=== PATIENT | male | born 1945 | race Caucasian/White ===

== ENCOUNTER 2020-12-03 07:51 | Outpatient (CLI) | payer MEDICARE ==
[2020-12-03 14:23] LABS: Hemoglobin 11.9 g/dL (14.0-18.0); Mean Corpuscular HGB CONC 34.4 G/DL (32.0-36.0); Mean Corpuscular Hemoglobin 31.8 PG (27.0-33.0); Mean Corpuscular Volume 92.5 fl (80.0-100.0); Mean Platelet Volume 8.8 fl (7.4-10.4); Platelet Count 138 10x3/uL (130-400); RBC Distribution Width 14.1 % (11.5-14.5); Red Blood Cell (RBC) Count 3.74 10x6/uL (4.40-5.80); White Blood Cell (WBC) Count 6.1 10x3/uL (4.5-11.0)
[2020-12-03 15:29] LABS: Anion Gap 20 mmol/L (10-20); BUN (Urea Nitrogen) 20 mg/dL (8.4-25.7); Calc. Creatinine Clearance 0 mL/min (70-130); Calcium 9.5 mg/dL (7.8-10.44); Carbon Dioxide 21 mmol/L (23-31); Chloride 105 mmol/L (98-107); Glucose 94 mg/dL (83-110); Potassium 4.6 mmol/L (3.5-5.1); Sodium 141 mmol/L (136-145)
[2020-12-03 22:20] LABS: SARS-CoV-2 MS2 Positive; SARS-CoV-2 N Gene Negative; SARS-CoV-2 S Gene Negative; SARS-CoV-2 by NAA Not Detected (NotDetected); SARS-CoV-2 orf1ab Negative
== END 2020-12-03 07:52 | disposition home or self-care (01) ==
LOC: LABBT 07:51
PROVIDERS: ATTEND Internal Medicine Cardiovascular Disease
DX: Z01.812 Encounter for preprocedural laboratory examination (principal); Z20.822 Contact with and (suspected) exposure to COVID-19; Z95.1 Presence of aortocoronary bypass graft
CPT/HCPCS: 80048; 85027; U0003; 87635

== ENCOUNTER 2020-12-06 05:39 | Day surgery (SDC) | payer MEDICARE ==
[2020-12-04 10:02] VITALS: BMI 27.8
[2020-12-06] MEDS ORDERED: Lidocaine 1% PF 5 ML VIAL ONE (12:07)
[2020-12-06] MEDS ORDERED: PROPOFOL 200 MG/20 ML VIAL ONE (12:07)
--- NOTE | 2020-12-06 12:13 | ECHO ---
PROCEDURE: Transesophageal echo. The Anesthesiology Department provided with sedation for the patient. Please see their notes for details. After adequate sedation was achieved, the transesophageal probe was inserted into the mouth and into the esophagus and multiplanar views were then obtained. Left ventricle is normal in size with normal wall thickness. Systolic function is normal, estimated EF at 55% to 60% with no regional wall motion abnormalities. Left atrium is dilated. Left atrial appendage is ligated; however, there is flow in and out of a small appendage. Right ventricle is normal size with normal systolic function. Right atrium is normal size. Aortic valve is sclerotic, but opens well. No stenosis or regurgitation. Mitral valve is structurally normal. There is mild MR. No stenosis. Tricuspid valve is structurally normal. There is mild TR. No stenosis. Pulmonary valve is not well seen. 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 CONCLUSIONS: 1. Normal LV systolic function, EF of 55% to 60%. 2. Left atrial enlargement. 3. Mild MR. 4. Mild TR. 5. Left atrial appendage has flow in and out, not fully ligated. Recommend continued full anticoagulation for stroke prophylaxis in the setting of atrial fibrillation and an open left atrial appendage. Job ID: [id number]
== END 2020-12-06 10:21 | disposition home or self-care (01) ==
LOC: CCL 05:39
PROVIDERS: ATTEND Internal Medicine Cardiovascular Disease
PROC: B245ZZ4 Ultrasonography of Left Heart, Transesophageal (ICD-10-PCS; principal; 2020-12-06)
DX: I48.91 Unspecified atrial fibrillation (principal); I08.1 Rheumatic disorders of both mitral and tricuspid valves; Z95.1 Presence of aortocoronary bypass graft
CPT/HCPCS: 93312

== ENCOUNTER 2021-02-06 14:23 | Outpatient (CLI) | payer MEDICARE ==
[~2021-02-06 14:23] MED LIST: Magnevist 469MG/ML 20 ML VIAL ONE
== END 2021-02-06 14:24 | disposition home or self-care (01) ==
LOC: BICMRI 14:23
PROVIDERS: ATTEND Psychiatry & Neurology Neurology
DX: G31.84 Mild cognitive impairment of uncertain or unknown etiology (principal); I67.82 Cerebral ischemia
CPT/HCPCS: 70553; 82565

== ENCOUNTER 2021-11-18 18:54 | Inpatient (IN) | payer MEDICARE, OTHER ==
[2021-11-18 20:01] LABS: #Eosinphils 0.1 thou/uL (0.0-0.7); #Lymphocytes 1.3 thou/uL (1.20-3.40); #Neutrophils 6.7 thou/uL (1.40-6.50); %Basophils 0.1 % (0.0-1.0); %Eosinophils 0.8 % (0.0-10.0); %Lymphocytes 14.4 % (21.0-51.0); %Monocytes 11.1 % (0.0-10.0); %Neutrophils 73.6 % (42.0-75.0); Hemoglobin 12.2 g/dL (14.0-18.0); Mean Corpuscular HGB CONC 36.4 g/dL (32.0-36.0); Mean Corpuscular Hemoglobin 35.1 pg (27.0-31.0); Mean Corpuscular Volume 96.6 fL (78.0-98.0); Mean Platelet Volume 7.9 fL (7.4-10.4); Platelet Count 206 thou/uL (130-400); RBC Distribution Width 13.1 % (11.5-14.5); Red Blood Cell (RBC) Count 3.48 mill/uL (4.70-6.10)
[2021-11-18 20:19] LABS: ALT (SGPT) 153 U/L (8-55); AST (SGOT) 269 U/L (5-34); Albumin 4.3 g/dL (3.4-4.8); Alkaline Phosphatase 146 U/L (40-110); Anion Gap 18 mmol/L (10-20); BUN (Urea Nitrogen) 44 mg/dL (8.4-25.7); Bilirubin, Total 1.6 mg/dL (0.2-1.2); Calc. Creatinine Clearance 0 mL/min (70-130); Calcium 7.7 mg/dL (7.8-10.44); Carbon Dioxide 18 mmol/L (23-31); Chloride 95 mmol/L (98-107); Globulin 2.6 g/dL (2.4-3.5); Glucose 112 mg/dL (83-110); Potassium 3.5 mmol/L (3.5-5.1); Protein, Total 6.9 g/dL (5.8-8.1); Sodium 127 mmol/L (136-145)
[2021-11-18 20:43] LABS: CKMB 50.4 ng/mL (0-6.6)
[2021-11-19 00:12] LABS: SARS-CoV-2 NAA Rapid Test Not Detected (NotDetected)
[2021-11-19 04:35] LABS: #Eosinphils 0.1 thou/uL (0.0-0.7); #Lymphocytes 1.3 thou/uL (1.20-3.40); #Monocytes 0.8 thou/uL (0.11-0.59); #Neutrophils 6.7 thou/uL (1.40-6.50); %Basophils 0.1 % (0.0-1.0); %Eosinophils 0.6 % (0.0-10.0); %Monocytes 9.3 % (0.0-10.0); %Neutrophils 75.1 % (42.0-75.0); Hemoglobin 11.9 g/dL (14.0-18.0); Mean Corpuscular HGB CONC 36.3 g/dL (32.0-36.0); Mean Corpuscular Hemoglobin 35.2 pg (27.0-31.0); Mean Platelet Volume 8.1 fL (7.4-10.4); Platelet Count 191 thou/uL (130-400); Red Blood Cell (RBC) Count 3.39 mill/uL (4.70-6.10)
[2021-11-19 04:49] LABS: ALT (SGPT) 156 U/L (8-55); AST (SGOT) 279 U/L (5-34); Alkaline Phosphatase 135 U/L (40-110); Anion Gap 16 mmol/L (10-20); BUN (Urea Nitrogen) 40 mg/dL (8.4-25.7); Bilirubin, Total 1.4 mg/dL (0.2-1.2); Calc. Creatinine Clearance 0 mL/min (70-130); Calcium 7.7 mg/dL (7.8-10.44); Carbon Dioxide 18 mmol/L (23-31); Chloride 102 mmol/L (98-107); Globulin 3.1 g/dL (2.4-3.5); Glucose 93 mg/dL (83-110); Potassium 3.5 mmol/L (3.5-5.1); Protein, Total 7.1 g/dL (5.8-8.1); Sodium 132 mmol/L (136-145)
[2021-11-19] MEDS ORDERED: Lorazepam 1 MG TAB PO SCH ×2 (06:00→07:30)
[2021-11-19] MEDS ORDERED: Ondansetron ODT 4 MG TAB PO PRN (07:15)
[2021-11-19] MEDS ORDERED: Lorazepam 2 MG/ML VIAL IM PRN ×2 (07:15→07:51)
[2021-11-19] MEDS ORDERED: Electrolyte Replacement Protocol 1 EACH FS PRN (07:15)
[2021-11-19] MEDS ORDERED: Sodium Chloride 0.9% 1,000 ML IV SCH (07:15)
[2021-11-19] MEDS ORDERED: Thiamine HCl 200 MG/2 ML VIAL SLOW IVP SCH (07:15)
[2021-11-19] MEDS ORDERED: Electrolyte Replacement Protocol FS PRN ×2 (07:30→11:30)
[2021-11-19] MEDS ORDERED: Potassium Chloride 20 MEQ TAB PO SCH (07:30)
[2021-11-19] MEDS ORDERED: Ondansetron PF 4 MG/2 ML Vial IVP PRN (07:49)
[2021-11-19] MEDS ORDERED: Lorazepam 1 MG TAB PO PRN ×2 (07:51)
[2021-11-19] MEDS ORDERED: Electrolyte Replacement Protocol 1 EACH FS SCH (08:00)
[2021-11-19] MEDS ORDERED: Multivit, Therapeutic 1 TAB PO SCH (09:00)
[2021-11-19] MEDS ORDERED: Folic Acid 1 MG TAB PO SCH (09:00)
[2021-11-19] MEDS: Carvedilol 3.125 MG TAB PO SCH ×2 (09:22→17:05)
[2021-11-19 09:23] VITALS: BMI 26.4
[2021-11-19] MEDS: Thiamine 100 MG TAB PO SCH (09:30)
[2021-11-19] MEDS ORDERED: Folic Acid 1 MG TAB ONE (09:31)
[2021-11-19] MEDS: Multivit, Therapeutic 1 TAB PO SCH (09:38)
[2021-11-19] MEDS: Folic Acid 1 MG TAB PO SCH (09:38)
[2021-11-19] MEDS: Sodium Chloride 0.9% 1,000 ML IV SCH ×2 (09:38→20:55)
[2021-11-19 10:03] LABS: Phosphorus 4.6 mg/dL (2.3-4.7)
[2021-11-19 10:09] LABS: Magnesium 0.7 mg/dL (1.6-2.6)
[2021-11-19] MEDS ORDERED: Magnesium 2 GM/50 ML 2 GM in Premix Bag 1 BAG IVPB SCH (11:30)
[2021-11-19] MEDS ORDERED: Magnesium 2 GM/50 ML BAG (IN WATER) ONE (11:44)
[2021-11-19] MEDS: Apixaban 5 MG TAB PO SCH (20:45)
[2021-11-20 05:19] LABS: INR-International Normal Ratio 1.4; Prothrombin Time 17.3 sec (12.0-14.7)
[2021-11-20 05:34] LABS: ALT (SGPT) 152 U/L (8-55); AST (SGOT) 255 U/L (5-34); Albumin 3.9 g/dL (3.4-4.8); Alkaline Phosphatase 133 U/L (40-110); Anion Gap 14 mmol/L (10-20); BUN (Urea Nitrogen) 27 mg/dL (8.4-25.7); Bilirubin, Total 1.2 mg/dL (0.2-1.2); Calc. Creatinine Clearance 59 mL/min (70-130); Carbon Dioxide 19 mmol/L (23-31); Chloride 110 mmol/L (98-107); Globulin 2.7 g/dL (2.4-3.5); Glucose 93 mg/dL (83-110); Iron 43 ug/dL (65-175); Iron Binding Capacity, Total 270 mcg/dL (261-462); Protein, Total 6.6 g/dL (5.8-8.1); Sodium 140 mmol/L (136-145)
[2021-11-20] MEDS: Levothyroxine Sodium 50 MCG TAB PO SCH (05:35)
[2021-11-20 05:38] LABS: Potassium 2.9 mmol/L (3.5-5.1)
[2021-11-20 05:51] LABS: Ferritin 373.44 ng/mL (22-322)
[2021-11-20 06:05] LABS: HBCM Index 0.09 S/CO (0-0.79); HBSAg Index 0.28 S/CO (0-0.99); Hep A IgM AB Non-Reactive (NonReactive); Hep A IgM S/CO 0.36 S/CO (0-0.79); Hep B Surf Ag Non-Reactive S/CO (NonReactive); Hep C IgG Ab Non-Reactive (NonReactive); Hep C Index 0.12 S/CO (0-0.79); Hepatitis B Core IgM Abs Non-Reactive (NonReactive)
[2021-11-20] MEDS ORDERED: Magnesium Sulfate 4 GM in Sodium Chloride 0.9% 250 ML 250 ML IVPB SCH (06:15)
[2021-11-20] MEDS: Potassium Chloride 20 MEQ TAB PO SCH ×2 (06:19→09:49)
[2021-11-20] MEDS ORDERED: Lorazepam 1 MG TAB PO PRN (07:51)
[2021-11-20] MEDS: Aspirin 81 mg Enteric Coated Tablet PO SCH (09:38)
[2021-11-20] MEDS: Folic Acid 1 MG TAB PO SCH (09:38)
[2021-11-20] MEDS: Multivit, Therapeutic 1 TAB PO SCH (09:38)
[2021-11-20] MEDS: Carvedilol 3.125 MG TAB PO SCH ×3 (09:38→17:51)
[2021-11-20] MEDS: Apixaban 5 MG TAB PO SCH ×2 (09:39→21:17)
[2021-11-20] MEDS: Thiamine 100 MG TAB PO SCH (09:39)
[2021-11-20 10:24] LABS: Magnesium 3.2 mg/dL (1.6-2.6)
[2021-11-20 10:49] LABS: Free T4 (Free Thyroxine) 1.38 ng/dL (0.70-1.48)
[2021-11-20] MEDS: Sodium Chloride 0.9% 1,000 ML IV SCH (11:09)
[2021-11-20 13:04] LABS: ANA Symphony (Qualitative) Negative (Negative); ANA Symphony (Quantitative) 0.3 Ratio (< 0.7 Negative); EliA Vaculitis New Method **** NEW METHOD ****; Mitochondrial Ab 1.3 U/mL (<4 Negative); dsDNA IgG Antibody 1.7 IU/mL (<10 Negative)
[2021-11-21] MEDS: Sodium Chloride 0.9% 1,000 ML IV SCH (00:15)
[2021-11-21] MEDS: Levothyroxine Sodium 50 MCG TAB PO SCH (05:51)
[2021-11-21] MEDS ORDERED: Ferrous Sulfate 325 MG TAB PO SCH (08:00)
[2021-11-21 08:02] LABS: Anion Gap 13 mmol/L (10-20); BUN (Urea Nitrogen) 13 mg/dL (8.4-25.7); Calc. Creatinine Clearance 77 mL/min (70-130); Calcium 8.6 mg/dL (7.8-10.44); Carbon Dioxide 18 mmol/L (23-31); Chloride 111 mmol/L (98-107); Glucose 101 mg/dL (83-110); Magnesium 2.3 mg/dL (1.6-2.6); Potassium 3.9 mmol/L (3.5-5.1); Sodium 138 mmol/L (136-145)
[2021-11-21] MEDS: Apixaban 5 MG TAB PO SCH (08:17)
[2021-11-21] MEDS: Carvedilol 3.125 MG TAB PO SCH (08:17)
[2021-11-21] MEDS: Multivit, Therapeutic 1 TAB PO SCH (08:17)
[2021-11-21] MEDS: Aspirin 81 mg Enteric Coated Tablet PO SCH (08:17)
[2021-11-21] MEDS: Thiamine 100 MG TAB PO SCH (08:17)
[2021-11-21] MEDS: Folic Acid 1 MG TAB PO SCH (08:18)
[2021-11-21 09:55] VITALS: BP 125/61; TEMP 97.6
[2021-11-21] MEDS: Lorazepam 1 MG TAB PO PRN ×2 (10:26→10:30)
[2021-11-21 10:33] LABS: ALT (SGPT) 148 U/L (8-55); AST (SGOT) 212 U/L (5-34); Albumin 3.9 g/dL (3.4-4.8); Alkaline Phosphatase 140 U/L (40-110); Bilirubin, Direct 0.6 mg/dL (0.1-0.3); Protein, Total 6.7 g/dL (5.8-8.1)
[2021-11-22] MEDS ORDERED: Lorazepam 0.5 MG TAB PO PRN (07:51)
== END 2021-11-21 12:26 | disposition home or self-care (01) | DRG 683 ==
LOC: ERS 18:54 → ERHOLD 22:15 → 2NO 11-19 15:13 → MSONC 11-20 19:55
PROVIDERS: ADMIT Internal Medicine; ATTEND Internal Medicine
DX: N17.9 Acute kidney failure, unspecified (principal); E87.1 Hypo-osmolality and hyponatremia; K52.1 Toxic gastroenteritis and colitis; K76.0 Fatty (change of) liver, not elsewhere classified; I95.2 Hypotension due to drugs; E78.5 Hyperlipidemia, unspecified; E78.00 Pure hypercholesterolemia, unspecified; I10 Essential (primary) hypertension; I48.0 Paroxysmal atrial fibrillation; I25.10 Atherosclerotic heart disease of native coronary artery without angina pectoris; M10.9 Gout, unspecified; E03.9 Hypothyroidism, unspecified; K21.9 Gastro-esophageal reflux disease without esophagitis; Z20.822 Contact with and (suspected) exposure to COVID-19; E86.0 Dehydration; D64.9 Anemia, unspecified; T50.4X5A Adverse effect of drugs affecting uric acid metabolism, initial encounter; E87.6 Hypokalemia; E61.1 Iron deficiency; R94.5 Abnormal results of liver function studies; K80.20 Calculus of gallbladder without cholecystitis without obstruction; Z90.49 Acquired absence of other specified parts of digestive tract; Z79.01 Long term (current) use of anticoagulants; Z95.1 Presence of aortocoronary bypass graft; Z72.89 Other problems related to lifestyle
CPT/HCPCS: 36415; 36416; 71045; 76705; 80048; 80053; 80074; 80076; 82553; 82728; 83516; 83540; 83550; 83605; 83735; 83880; 84100; 84439; 84443; 84481; 84484; 85025; 85610; 86038; 86225; 87045; 87046; 87324; 87427; 87449; 93005; J3475; J7050; U0002

== ENCOUNTER 2021-11-24 11:01 | Emergency (ER) | payer MEDICARE ==
[2021-11-24 12:15] LABS: Bilirubin Negative (Negative); Blood, Urine Negative (Negative); Clarity Clear (Clear); Glucose, Urine (Dipstick) Normal (Negative); Ketone, Urine Negative (Negative); Leukocyte Negative Leu/uL (Negative); Nitrite Negative (Negative); Protein, Urine (Dipstick) Negative (Neg-Trace); Specific Gravity, Urine 1.015 (1.002-1.036); Urobilinogen Normal mg/dL (Less than 2)
[2021-11-24 12:17] LABS: #Eosinphils 0.1 thou/uL (0.0-0.7); #Lymphocytes 1.2 thou/uL (1.20-3.40); #Monocytes 0.7 thou/uL (0.11-0.59); #Neutrophils 6.1 thou/uL (1.40-6.50); %Basophils 0.3 % (0.0-1.0); %Eosinophils 1.2 % (0.0-10.0); %Monocytes 8.3 % (0.0-10.0); %Neutrophils 75.1 % (42.0-75.0); Hemoglobin 11.5 g/dL (14.0-18.0); Mean Corpuscular HGB CONC 35.6 g/dL (32.0-36.0); Mean Corpuscular Hemoglobin 35.6 pg (27.0-31.0); Mean Platelet Volume 6.8 fL (7.4-10.4); Platelet Count 179 thou/uL (130-400); RBC Distribution Width 13.5 % (11.5-14.5); Red Blood Cell (RBC) Count 3.22 mill/uL (4.70-6.10); White Blood Cell (WBC) Count 8.2 thou/uL (4.8-10.8)
[2021-11-24 12:36] LABS: ALT (SGPT) 132 U/L (8-55); AST (SGOT) 121 U/L (5-34); Alkaline Phosphatase 113 U/L (40-110); Anion Gap 12 mmol/L (10-20); BUN (Urea Nitrogen) 18 mg/dL (8.4-25.7); Bilirubin, Total 1.1 mg/dL (0.2-1.2); Calc. Creatinine Clearance 0 mL/min (70-130); Calcium 10.1 mg/dL (7.8-10.44); Carbon Dioxide 25 mmol/L (23-31); Chloride 106 mmol/L (98-107); Globulin 2.8 g/dL (2.4-3.5); Glucose 123 mg/dL (83-110); Protein, Total 6.8 g/dL (5.8-8.1); Sodium 139 mmol/L (136-145)
[2021-11-24] MEDS ORDERED: Lidocaine 1% PF 5 ML VIAL ONE (13:36)
== END 2021-11-24 13:25 | disposition home or self-care (01) ==
LOC: ERS 11:01
DX: R33.9 Retention of urine, unspecified (principal); E78.5 Hyperlipidemia, unspecified; E78.00 Pure hypercholesterolemia, unspecified; I10 Essential (primary) hypertension; Z79.82 Long term (current) use of aspirin; Z79.01 Long term (current) use of anticoagulants; Z79.899 Other long term (current) drug therapy
CPT/HCPCS: 36415; 51702; 80053; 81003; 85025; 87086

== ENCOUNTER 2021-12-18 14:02 | Inpatient (IN) | payer MEDICARE ==
[2021-12-18 14:30] LABS: #Eosinphils 0.2 thou/uL (0.0-0.7); #Lymphocytes 1.2 thou/uL (1.20-3.40); #Monocytes 0.8 thou/uL (0.11-0.59); #Neutrophils 9.9 thou/uL (1.40-6.50); %Basophils 0.1 % (0.0-1.0); %Eosinophils 1.8 % (0.0-10.0); %Lymphocytes 9.5 % (21.0-51.0); %Monocytes 6.5 % (0.0-10.0); %Neutrophils 82.1 % (42.0-75.0); Hemoglobin 10.9 g/dL (14.0-18.0); Mean Corpuscular HGB CONC 33.7 g/dL (32.0-36.0); Mean Corpuscular Hemoglobin 33.6 pg (27.0-31.0); Mean Corpuscular Volume 99.6 fL (78.0-98.0); Mean Platelet Volume 6.8 fL (7.4-10.4); Platelet Count 298 thou/uL (130-400); RBC Distribution Width 12.8 % (11.5-14.5); Red Blood Cell (RBC) Count 3.25 mill/uL (4.70-6.10)
[2021-12-18 14:59] LABS: ALT (SGPT) 157 U/L (8-55); AST (SGOT) 150 U/L (5-34); Albumin 3.6 g/dL (3.4-4.8); Alkaline Phosphatase 133 U/L (40-110); Anion Gap 17 mmol/L (10-20); BUN (Urea Nitrogen) 50 mg/dL (8.4-25.7); Bilirubin, Total 0.6 mg/dL (0.2-1.2); Calc. Creatinine Clearance 0 mL/min (70-130); Calcium 9.9 mg/dL (7.8-10.44); Carbon Dioxide 21 mmol/L (23-31); Chloride 102 mmol/L (98-107); Globulin 4.2 g/dL (2.4-3.5); Glucose 118 mg/dL (83-110); Potassium 4.6 mmol/L (3.5-5.1); Protein, Total 7.8 g/dL (5.8-8.1); Sodium 135 mmol/L (136-145)
[2021-12-18] MEDS ORDERED: Morphine 4 MG/ML VIAL ONE (15:39)
[2021-12-18] MEDS ORDERED: Bisacodyl 10 MG SUPP PR PRN (16:53)
[2021-12-18] MEDS ORDERED: Calcium Carbonate 500 MG ChewTAB PO PRN (16:53)
[2021-12-18] MEDS ORDERED: Guaifenesin DM 100-10/5 ML UDCUP PO PRN (16:53)
[2021-12-18] MEDS ORDERED: Ondansetron PF 4 MG/2 ML Vial IVP PRN (16:53)
[2021-12-18] MEDS ORDERED: Acetaminophen 325 MG TAB PO PRN (16:53)
[2021-12-18] MEDS ORDERED: predniSONE 20 MG TAB PO SCH (17:00)
[2021-12-18] MEDS ORDERED: Morphine 4 MG/ML VIAL SLOW IVP PRN (17:44)
[2021-12-18] MEDS ORDERED: HYDROcodone/Acetaminophen 5/325 mg Tablet ONE (18:24)
[2021-12-18] MEDS: Carvedilol 3.125 MG TAB PO SCH (19:36)
[2021-12-18 19:45] VITALS: BMI 24.3
[2021-12-18] MEDS: Apixaban 5 MG TAB PO SCH (21:15)
[2021-12-18] MEDS: cefTRIAXone\\ROCEPHIN 1 GM in Sodium Chloride 0.9% 100 ML IVPB SCH (21:15)
[2021-12-18] MEDS: Colchicine 0.6 MG TAB PO SCH (21:15)
[2021-12-18 23:22] LABS: SARS-CoV-2 NAA Rapid Test Not Detected (NotDetected)
[2021-12-19] MEDS: Levothyroxine Sodium 50 MCG TAB PO SCH (05:43)
[2021-12-19 06:44] LABS: #Lymphocytes 0.6 thou/uL (1.20-3.40); #Monocytes 0.1 thou/uL (0.11-0.59); #Neutrophils 7.4 thou/uL (1.40-6.50); %Eosinophils 0.2 % (0.0-10.0); %Lymphocytes 7.2 % (21.0-51.0); %Neutrophils 91.6 % (42.0-75.0); Hemoglobin 10.6 g/dL (14.0-18.0); Mean Corpuscular HGB CONC 34.3 g/dL (32.0-36.0); Mean Corpuscular Hemoglobin 34.5 pg (27.0-31.0); Mean Platelet Volume 6.6 fL (7.4-10.4); Platelet Count 277 thou/uL (130-400); RBC Distribution Width 12.8 % (11.5-14.5); Red Blood Cell (RBC) Count 3.08 mill/uL (4.70-6.10)
[2021-12-19 06:58] LABS: Anion Gap 15 mmol/L (10-20); BUN (Urea Nitrogen) 41 mg/dL (8.4-25.7); Calc. Creatinine Clearance 56 mL/min (70-130); Calcium 9.5 mg/dL (7.8-10.44); Carbon Dioxide 21 mmol/L (23-31); Chloride 104 mmol/L (98-107); Glucose 163 mg/dL (83-110); Potassium 4.9 mmol/L (3.5-5.1); Sodium 135 mmol/L (136-145)
[2021-12-19] MEDS: Ferrous Sulfate 325 MG TAB PO SCH (09:01)
[2021-12-19] MEDS: Ascorbic Acid 500 mg Chewable Tablet PO SCH (09:02)
[2021-12-19] MEDS: Apixaban 5 MG TAB PO SCH ×2 (09:02→20:10)
[2021-12-19] MEDS: Carvedilol 3.125 MG TAB PO SCH ×2 (09:02→16:56)
[2021-12-19] MEDS: Colchicine 0.6 MG TAB PO SCH ×2 (09:02→20:10)
[2021-12-19] MEDS: Aspirin 81 mg Enteric Coated Tablet PO SCH (09:02)
[2021-12-19] MEDS: predniSONE 20 MG TAB PO SCH (09:02)
[2021-12-19] MEDS: Thiamine 100 MG TAB PO SCH (09:02)
[2021-12-19] MEDS: cefTRIAXone\\ROCEPHIN 1 GM in Sodium Chloride 0.9% 100 ML IVPB SCH (16:56)
[2021-12-20] MEDS: Levothyroxine Sodium 50 MCG TAB PO SCH (05:49)
[2021-12-20 07:11] LABS: ALT (SGPT) 160 U/L (8-55); AST (SGOT) 133 U/L (5-34); Albumin 3.1 g/dL (3.4-4.8); Alkaline Phosphatase 124 U/L (40-110); Anion Gap 13 mmol/L (10-20); BUN (Urea Nitrogen) 34 mg/dL (8.4-25.7); Bilirubin, Total 0.3 mg/dL (0.2-1.2); Calc. Creatinine Clearance 66 mL/min (70-130); Calcium 9.2 mg/dL (7.8-10.44); Carbon Dioxide 21 mmol/L (23-31); Chloride 106 mmol/L (98-107); Globulin 3.6 g/dL (2.4-3.5); Glucose 108 mg/dL (83-110); Potassium 3.9 mmol/L (3.5-5.1); Protein, Total 6.7 g/dL (5.8-8.1); Sodium 136 mmol/L (136-145)
[2021-12-20] MEDS: Ferrous Sulfate 325 MG TAB PO SCH (08:51)
[2021-12-20] MEDS: Aspirin 81 mg Enteric Coated Tablet PO SCH (08:51)
[2021-12-20] MEDS: Apixaban 5 MG TAB PO SCH ×2 (08:52→20:51)
[2021-12-20] MEDS: Ascorbic Acid 500 mg Chewable Tablet PO SCH (08:52)
[2021-12-20] MEDS: Thiamine 100 MG TAB PO SCH (08:52)
[2021-12-20] MEDS: predniSONE 20 MG TAB PO SCH (08:52)
[2021-12-20] MEDS: Colchicine 0.6 MG TAB PO SCH ×2 (08:52→20:51)
[2021-12-20] MEDS: Carvedilol 3.125 MG TAB PO SCH ×2 (08:52→17:16)
[2021-12-20] MEDS: HYDROcodone/Acetaminophen 5/325 mg Tablet PO PRN (09:03)
[2021-12-20] MEDS: cefTRIAXone\\ROCEPHIN 1 GM in Sodium Chloride 0.9% 100 ML IVPB SCH (17:17)
[2021-12-21] MEDS: Levothyroxine Sodium 50 MCG TAB PO SCH (06:06)
[2021-12-21 06:46] LABS: ALT (SGPT) 148 U/L (8-55); AST (SGOT) 82 U/L (5-34); Albumin 3.2 g/dL (3.4-4.8); Alkaline Phosphatase 110 U/L (40-110); Anion Gap 10 mmol/L (10-20); BUN (Urea Nitrogen) 26 mg/dL (8.4-25.7); Bilirubin, Total 0.3 mg/dL (0.2-1.2); Calc. Creatinine Clearance 77 mL/min (70-130); Calcium 9.2 mg/dL (7.8-10.44); Carbon Dioxide 25 mmol/L (23-31); Chloride 106 mmol/L (98-107); Globulin 3.4 g/dL (2.4-3.5); Glucose 96 mg/dL (83-110); Potassium 3.8 mmol/L (3.5-5.1); Protein, Total 6.6 g/dL (5.8-8.1); Sodium 137 mmol/L (136-145)
[2021-12-21] MEDS: Carvedilol 3.125 MG TAB PO SCH (08:23)
[2021-12-21] MEDS: Apixaban 5 MG TAB PO SCH (08:23)
[2021-12-21] MEDS: predniSONE 20 MG TAB PO SCH (08:24)
[2021-12-21] MEDS: Thiamine 100 MG TAB PO SCH (08:24)
[2021-12-21] MEDS: Aspirin 81 mg Enteric Coated Tablet PO SCH (08:24)
[2021-12-21] MEDS: Ascorbic Acid 500 mg Chewable Tablet PO SCH (08:24)
[2021-12-21] MEDS: Colchicine 0.6 MG TAB PO SCH (08:24)
[2021-12-21] MEDS: Ferrous Sulfate 325 MG TAB PO SCH (08:24)
[2021-12-21] MEDS: HYDROcodone/Acetaminophen 5/325 mg Tablet PO PRN (08:24)
[2021-12-21 08:44] VITALS: TEMP 97.9
[2021-12-21 13:01] VITALS: BP 132/60
== END 2021-12-21 13:15 | disposition home or self-care (01) | DRG 683 ==
LOC: ERS 14:02 → SJJU 16:34 → OBSVTOIN 12-19 16:39
PROVIDERS: ADMIT Internal Medicine; ATTEND Internal Medicine
DX: N17.9 Acute kidney failure, unspecified (principal); I48.20 Chronic atrial fibrillation, unspecified; M10.9 Gout, unspecified; I25.10 Atherosclerotic heart disease of native coronary artery without angina pectoris; E78.5 Hyperlipidemia, unspecified; R74.01 Elevation of levels of liver transaminase levels; Z20.822 Contact with and (suspected) exposure to COVID-19; I10 Essential (primary) hypertension; E03.9 Hypothyroidism, unspecified; Z90.89 Acquired absence of other organs; Z79.82 Long term (current) use of aspirin; Z79.899 Other long term (current) drug therapy; Z79.01 Long term (current) use of anticoagulants
CPT/HCPCS: 36415; 80048; 80053; 83605; 83880; 85025; 93005; 93970; 96374; J0696; J2270; J3490; J7512; U0002

== ENCOUNTER 2022-05-06 13:58 | Outpatient (CLI) | payer MEDICARE | END 2022-05-06 13:59 | disposition home or self-care (01) | LOC: BICMAMMO 13:58 | PROVIDERS: ATTEND Registered Nurse | DX: Z13.820 Encounter for screening for osteoporosis (principal); R93.7 Abnormal findings on diagnostic imaging of other parts of musculoskeletal system | CPT/HCPCS: 77080 ==

== ENCOUNTER 2022-05-06 14:32 | Outpatient (CLI) | payer MEDICARE | END 2022-05-06 14:33 | disposition home or self-care (01) | LOC: ULT 14:32 | PROVIDERS: ATTEND Registered Nurse | DX: R20.9 Unspecified disturbances of skin sensation (principal); I25.110 Atherosclerotic heart disease of native coronary artery with unstable angina pectoris | CPT/HCPCS: 93970 ==

== ENCOUNTER 2022-07-30 14:56 | Inpatient (IN) | payer MEDICARE, OTHER ==
[2022-07-30 15:52] LABS: #Eosinphils 0.3 thou/uL (0.0-0.7); #Lymphocytes 1.5 thou/uL (1.20-3.40); #Monocytes 0.4 thou/uL (0.11-0.59); #Neutrophils 5.3 thou/uL (1.40-6.50); %Basophils 0.1 % (0.0-1.0); %Eosinophils 3.7 % (0.0-10.0); %Monocytes 4.8 % (0.0-10.0); %Neutrophils 71.4 % (42.0-75.0); Hemoglobin 10.5 g/dL (14.0-18.0); Mean Corpuscular HGB CONC 33.9 g/dL (32.0-36.0); Mean Corpuscular Hemoglobin 35.3 pg (27.0-31.0); Mean Platelet Volume 6.7 fL (7.4-10.4); Platelet Count 96 thou/uL (130-400); RBC Distribution Width 14.5 % (11.5-14.5); Red Blood Cell (RBC) Count 2.98 mill/uL (4.70-6.10); White Blood Cell (WBC) Count 7.4 thou/uL (4.8-10.8)
[2022-07-30 15:58] LABS: INR-International Normal Ratio 1.6; PTT 37.8 sec (22.9-36.1); Prothrombin Time 19.1 sec (12.0-14.7)
[2022-07-30 16:09] LABS: ALT (SGPT) 22 U/L (8-55); AST (SGOT) 46 U/L (5-34); Albumin 4.2 g/dL (3.4-4.8); Alkaline Phosphatase 311 U/L (40-110); Anion Gap 21 mmol/L (10-20); BUN (Urea Nitrogen) 12 mg/dL (8.4-25.7); Calc. Creatinine Clearance 0 mL/min (70-130); Calcium 8.9 mg/dL (7.8-10.44); Carbon Dioxide 19 mmol/L (23-31); Chloride 106 mmol/L (98-107); Estimated GFR 89; Globulin 2.5 g/dL (2.4-3.5); Glucose 130 mg/dL (83-110); Potassium 3.5 mmol/L (3.5-5.1); Protein, Total 6.7 g/dL (5.8-8.1); Sodium 142 mmol/L (136-145)
[2022-07-30] MEDS ORDERED: Senokot S 8.6-50 MG TAB PO PRN (17:13)
[2022-07-30] MEDS ORDERED: Ondansetron ODT 4 MG TAB PO PRN (17:13)
[2022-07-30] MEDS ORDERED: Ondansetron PF 4 MG/2 ML Vial IVP PRN (17:13)
[2022-07-30] MEDS ORDERED: hydrALAZINE 20 MG/ML VIAL SLOW IVP PRN (17:17)
[2022-07-30 17:40] LABS: Bilirubin Unable to Interpret (Negative); Blood, Urine Unable to Interpret (Negative); Clarity Hazy (Clear); Glucose, Urine (Dipstick) Unable to Interpret mg/dL (Negative); Ketone, Urine Unable to Interpret mg/dL (Negative); Leukocyte Unable to Interpret Leu/uL (Negative); Nitrite Unable to Interpret (Negative); Protein, Urine (Dipstick) Unable to Interpret mg/dL (Neg-Trace); Specific Gravity, Urine 1.012 (1.002-1.036); Urobilinogen UNABLE TO INTERPRET mg/dL (Less than 2); pH, Urine 6.5 (5.0-9.0)
[2022-07-30 17:41] LABS: Bacteria/HPF Rare-Few HPF (None Seen); RBC/HPF Greater than 50 HPF (0-3); Squamous Epithelial None Seen HPF (0-3); WBC/HPF 0-3 HPF (0-3)
[2022-07-30] MEDS ORDERED: Sodium Chloride 0.9% 1,000 ML IV SCH (18:00)
[2022-07-30 18:58] VITALS: BMI 26.3
[2022-07-30] MEDS: cefTRIAXone\\ROCEPHIN 1 GM in Sodium Chloride 0.9% 100 ML IVPB SCH (20:07)
[2022-07-30] MEDS: Atorvastatin Calcium 40 MG TAB PO SCH (20:08)
[2022-07-30] MEDS ORDERED: Apixaban 5 MG TAB PO SCH (21:00)
[2022-07-31] MEDS: Acetaminophen 325 MG TAB PO PRN ×2 (00:18→22:02)
[2022-07-31] MEDS: Levothyroxine Sodium 50 MCG TAB PO SCH (05:35)
[2022-07-31 05:59] LABS: ALT (SGPT) 16 U/L (8-55); AST (SGOT) 34 U/L (5-34); Albumin 3.4 g/dL (3.4-4.8); Alkaline Phosphatase 286 U/L (40-110); Anion Gap 14 mmol/L (10-20); BUN (Urea Nitrogen) 11 mg/dL (8.4-25.7); Bilirubin, Total 1.3 mg/dL (0.2-1.2); Calc. Creatinine Clearance 82 mL/min (70-130); Calcium 8.4 mg/dL (7.8-10.44); Carbon Dioxide 24 mmol/L (23-31); Cardiac Risk 1.9 (Less than 4.5); Chloride 107 mmol/L (98-107); Cholesterol 124 mg/dl (< 200 Desired); Estimated GFR 90; Globulin 2.1 g/dL (2.4-3.5); Glucose 101 mg/dL (83-110); HDL Cholesterol 66 mg/dL (>60 Neg Risk); LDL Cholesterol, Calculated 49 mg/dL; Magnesium 1.6 mg/dL (1.6-2.6); Potassium 3.5 mmol/L (3.5-5.1); Protein, Total 5.5 g/dL (5.8-8.1); Sodium 141 mmol/L (136-145); Triglycerides 44 mg/dL (Less than 150)
[2022-07-31 06:04] LABS: #Eosinphils 0.3 thou/uL (0.0-0.7); #Lymphocytes 1.3 thou/uL (1.20-3.40); #Monocytes 0.4 thou/uL (0.11-0.59); #Neutrophils 4.8 thou/uL (1.40-6.50); %Basophils 0.6 % (0.0-1.0); %Eosinophils 4.1 % (0.0-10.0); %Lymphocytes 18.6 % (21.0-51.0); %Monocytes 6.2 % (0.0-10.0); %Neutrophils 70.4 % (42.0-75.0); Anisocytosis SLIGHT = 6-15 cells (100X) (0-5/hpf); Burr Cells SLIGHT = 2-5 cells (100X) (0-1/hpf); Hemoglobin 9.3 g/dL (14.0-18.0); Large Platelets SLIGHT; MDiff Complete? YES; Macrocytosis MODERATE=16-30 cells (100X) (0-5/hpf); Mean Corpuscular HGB CONC 33.7 g/dL (32.0-36.0); Mean Corpuscular Hemoglobin 35.3 pg (27.0-31.0); Mean Platelet Volume 6.5 fL (7.4-10.4); Ovalocytes SLIGHT = 2-5 cells (100X) (0-1/hpf); Platelet Count 75 thou/uL (130-400); Platelet Morphology Comment Appears Decreased; RBC Distribution Width 14.6 % (11.5-14.5); Red Blood Cell (RBC) Count 2.64 mill/uL (4.70-6.10); Tear Drops SLIGHT = 2-5 cells (100X) (0-1/hpf); White Blood Cell (WBC) Count 6.8 thou/uL (4.8-10.8)
[2022-07-31 06:23] LABS: Hemoglobin A1c 4.7 % (4.0-6.0)
[2022-07-31] MEDS: Allopurinol 100 MG TAB PO SCH (08:24)
[2022-07-31] MEDS: Aspirin 81 mg Enteric Coated Tablet PO SCH (08:24)
[2022-07-31] MEDS: Carvedilol 3.125 MG TAB PO SCH (17:59)
[2022-07-31] MEDS: cefTRIAXone\\ROCEPHIN 1 GM in Sodium Chloride 0.9% 100 ML IVPB SCH (18:02)
[2022-07-31] MEDS: Atorvastatin Calcium 40 MG TAB PO SCH (22:02)
[2022-08-01] MEDS: Levothyroxine Sodium 50 MCG TAB PO SCH (05:39)
[2022-08-01] MEDS: Tamsulosin HCl 0.4 MG CAP PO SCH (08:06)
[2022-08-01] MEDS: Allopurinol 100 MG TAB PO SCH (08:06)
[2022-08-01] MEDS: Aspirin 81 mg Enteric Coated Tablet PO SCH (08:06)
[2022-08-01] MEDS: Ferrous Sulfate 325 MG TAB PO SCH (08:06)
[2022-08-01] MEDS: Carvedilol 3.125 MG TAB PO SCH ×2 (08:06→17:32)
[2022-08-01] MEDS: Thiamine 100 MG TAB PO SCH (08:06)
[2022-08-01] MEDS: cefTRIAXone\\ROCEPHIN 1 GM in Sodium Chloride 0.9% 100 ML IVPB SCH (17:32)
[2022-08-01] MEDS: Atorvastatin Calcium 40 MG TAB PO SCH (20:45)
[2022-08-02 05:12] LABS: Hemoglobin 9.8 g/dL (14.0-18.0); Mean Corpuscular HGB CONC 34.2 g/dL (32.0-36.0); Mean Corpuscular Hemoglobin 35.6 pg (27.0-31.0); Mean Platelet Volume 7.2 fL (7.4-10.4); Platelet Count 71 thou/uL (130-400); RBC Distribution Width 14.2 % (11.5-14.5); Red Blood Cell (RBC) Count 2.74 mill/uL (4.70-6.10); White Blood Cell (WBC) Count 6.4 thou/uL (4.8-10.8)
[2022-08-02] MEDS: Levothyroxine Sodium 50 MCG TAB PO SCH (05:56)
[2022-08-02] MEDS: Ferrous Sulfate 325 MG TAB PO SCH (10:03)
[2022-08-02] MEDS: Allopurinol 100 MG TAB PO SCH (10:03)
[2022-08-02] MEDS: Carvedilol 3.125 MG TAB PO SCH ×2 (10:03→18:29)
[2022-08-02] MEDS: Losartan 25 MG TAB PO SCH (10:04)
[2022-08-02] MEDS: Aspirin 81 mg Enteric Coated Tablet PO SCH (10:04)
[2022-08-02] MEDS: Amlodipine 10 MG TAB PO SCH (10:04)
[2022-08-02] MEDS: Thiamine 100 MG TAB PO SCH (10:05)
[2022-08-02] MEDS: Tamsulosin HCl 0.4 MG CAP PO SCH (10:05)
[2022-08-02] MEDS: cefTRIAXone\\ROCEPHIN 1 GM in Sodium Chloride 0.9% 100 ML IVPB SCH (18:29)
[2022-08-02] MEDS: Atorvastatin Calcium 40 MG TAB PO SCH (20:19)
[2022-08-02] MEDS ORDERED: Melatonin 3 MG TAB PO PRN (23:12)
[2022-08-03] MEDS: Levothyroxine Sodium 50 MCG TAB PO SCH (05:55)
[2022-08-03] MEDS: Amlodipine 10 MG TAB PO SCH (08:55)
[2022-08-03] MEDS: Ferrous Sulfate 325 MG TAB PO SCH (08:55)
[2022-08-03] MEDS: Losartan 25 MG TAB PO SCH (08:55)
[2022-08-03] MEDS: Aspirin 81 mg Enteric Coated Tablet PO SCH (08:55)
[2022-08-03] MEDS: Carvedilol 3.125 MG TAB PO SCH ×2 (08:55→17:26)
[2022-08-03] MEDS: Allopurinol 100 MG TAB PO SCH (08:55)
[2022-08-03] MEDS: Tamsulosin HCl 0.4 MG CAP PO SCH (08:56)
[2022-08-03] MEDS: Thiamine 100 MG TAB PO SCH (08:56)
[2022-08-03] MEDS: Spironolactone 25 MG TAB PO SCH (08:56)
[2022-08-03] MEDS ORDERED: Non-Formulary Item 1 EACH (Losartan Potassium [Cozaar] 100 MG Tablet) PO SCH (09:00)
[2022-08-03] MEDS ORDERED: Colchicine 0.6 MG TAB PO SCH ×2 (09:30→09:45)
[2022-08-03] MEDS: Atorvastatin Calcium 40 MG TAB PO SCH (20:47)
[2022-08-03] MEDS: Colchicine 0.6 MG TAB PO SCH (20:53)
[2022-08-04] MEDS: Levothyroxine Sodium 50 MCG TAB PO SCH (05:22)
[2022-08-04 06:09] LABS: Hemoglobin 9.7 g/dL (14.0-18.0)
[2022-08-04] MEDS: Carvedilol 3.125 MG TAB PO SCH ×2 (09:46→17:15)
[2022-08-04] MEDS: Ferrous Sulfate 325 MG TAB PO SCH (09:46)
[2022-08-04] MEDS: Amlodipine 10 MG TAB PO SCH (09:47)
[2022-08-04] MEDS: Colchicine 0.6 MG TAB PO SCH ×2 (09:47→20:11)
[2022-08-04] MEDS: Losartan 25 MG TAB PO SCH (09:47)
[2022-08-04] MEDS: Aspirin 81 mg Enteric Coated Tablet PO SCH (09:47)
[2022-08-04] MEDS: Spironolactone 25 MG TAB PO SCH (09:48)
[2022-08-04] MEDS: Tamsulosin HCl 0.4 MG CAP PO SCH (09:48)
[2022-08-04] MEDS: Thiamine 100 MG TAB PO SCH (09:48)
[2022-08-04] MEDS: Atorvastatin Calcium 40 MG TAB PO SCH (20:12)
[2022-08-04] MEDS: traZODone HCl 150 MG TAB PO PRN (23:37)
[2022-08-05] MEDS: Levothyroxine Sodium 50 MCG TAB PO SCH (05:15)
[2022-08-05] MEDS: Carvedilol 3.125 MG TAB PO SCH ×2 (09:21→17:25)
[2022-08-05] MEDS: Ferrous Sulfate 325 MG TAB PO SCH (09:22)
[2022-08-05] MEDS: Amlodipine 10 MG TAB PO SCH (09:22)
[2022-08-05] MEDS: Aspirin 81 mg Enteric Coated Tablet PO SCH (09:23)
[2022-08-05] MEDS: Tamsulosin HCl 0.4 MG CAP PO SCH (09:24)
[2022-08-05] MEDS: Spironolactone 25 MG TAB PO SCH (09:25)
[2022-08-05] MEDS: Thiamine 100 MG TAB PO SCH (09:26)
[2022-08-05] MEDS: Colchicine 0.6 MG TAB PO SCH ×2 (09:27→22:20)
[2022-08-05] MEDS: Losartan 25 MG TAB PO SCH (09:51)
[2022-08-05] MEDS: traZODone HCl 150 MG TAB PO PRN (22:20)
[2022-08-05] MEDS: Atorvastatin Calcium 40 MG TAB PO SCH (22:20)
[2022-08-06] MEDS: Levothyroxine Sodium 50 MCG TAB PO SCH (05:48)
[2022-08-06] MEDS: Losartan 25 MG TAB PO SCH (09:37)
[2022-08-06] MEDS: Amlodipine 10 MG TAB PO SCH (09:38)
[2022-08-06] MEDS: Aspirin 81 mg Enteric Coated Tablet PO SCH (09:38)
[2022-08-06] MEDS: Spironolactone 25 MG TAB PO SCH (09:38)
[2022-08-06] MEDS: Tamsulosin HCl 0.4 MG CAP PO SCH (09:38)
[2022-08-06] MEDS: Carvedilol 3.125 MG TAB PO SCH ×2 (09:40→17:56)
[2022-08-06] MEDS: Thiamine 100 MG TAB PO SCH (09:40)
[2022-08-06] MEDS: Ferrous Sulfate 325 MG TAB PO SCH (09:40)
[2022-08-06] MEDS: Atorvastatin Calcium 40 MG TAB PO SCH (20:56)
[2022-08-06] MEDS: traZODone HCl 150 MG TAB PO PRN (20:56)
[2022-08-07] MEDS: Levothyroxine Sodium 50 MCG TAB PO SCH (06:06)
[2022-08-07] MEDS: Thiamine 100 MG TAB PO SCH (08:59)
[2022-08-07] MEDS: Spironolactone 25 MG TAB PO SCH (08:59)
[2022-08-07] MEDS: Ferrous Sulfate 325 MG TAB PO SCH (08:59)
[2022-08-07] MEDS: Aspirin 81 mg Enteric Coated Tablet PO SCH (09:01)
[2022-08-07] MEDS: Losartan 25 MG TAB PO SCH (09:02)
[2022-08-07] MEDS: Tamsulosin HCl 0.4 MG CAP PO SCH (09:02)
[2022-08-07] MEDS: Amlodipine 10 MG TAB PO SCH (09:03)
[2022-08-07] MEDS: Carvedilol 3.125 MG TAB PO SCH ×2 (09:03→18:01)
[2022-08-07] MEDS: Atorvastatin Calcium 40 MG TAB PO SCH (20:50)
[2022-08-07] MEDS: traZODone HCl 150 MG TAB PO PRN (20:50)
[2022-08-08] MEDS: Levothyroxine Sodium 50 MCG TAB PO SCH (05:57)
[2022-08-08] MEDS: Thiamine 100 MG TAB PO SCH (09:26)
[2022-08-08] MEDS: Spironolactone 25 MG TAB PO SCH (09:26)
[2022-08-08] MEDS: Tamsulosin HCl 0.4 MG CAP PO SCH (09:26)
[2022-08-08] MEDS: Amlodipine 10 MG TAB PO SCH (09:27)
[2022-08-08] MEDS: Losartan 25 MG TAB PO SCH (09:28)
[2022-08-08] MEDS: Allopurinol 100 MG TAB PO SCH (09:28)
[2022-08-08] MEDS: Carvedilol 3.125 MG TAB PO SCH ×2 (09:29→17:39)
[2022-08-08] MEDS: Ferrous Sulfate 325 MG TAB PO SCH (09:29)
[2022-08-08] MEDS: Aspirin 81 mg Enteric Coated Tablet PO SCH (09:29)
[2022-08-08 14:04] LABS: #Basophils 0.1 thou/uL (0.0-0.2); #Eosinphils 0.4 thou/uL (0.0-0.7); #Lymphocytes 1.4 thou/uL (1.20-3.40); #Monocytes 0.4 thou/uL (0.11-0.59); #Neutrophils 3.3 thou/uL (1.40-6.50); %Eosinophils 7.4 % (0.0-10.0); %Lymphocytes 24.5 % (21.0-51.0); %Monocytes 7.3 % (0.0-10.0); %Neutrophils 59.7 % (42.0-75.0); Hemoglobin 9.5 g/dL (14.0-18.0); Mean Corpuscular HGB CONC 33.4 g/dL (32.0-36.0); Mean Corpuscular Hemoglobin 33.9 pg (27.0-31.0); Platelet Count 116 thou/uL (130-400); Red Blood Cell (RBC) Count 2.79 mill/uL (4.70-6.10); White Blood Cell (WBC) Count 5.5 thou/uL (4.8-10.8)
[2022-08-08 14:38] LABS: ALT (SGPT) 24 U/L (8-55); AST (SGOT) 30 U/L (5-34); Albumin 3.6 g/dL (3.4-4.8); Alkaline Phosphatase 278 U/L (40-110); Anion Gap 13 mmol/L (10-20); BUN (Urea Nitrogen) 16 mg/dL (8.4-25.7); Bilirubin, Total 0.6 mg/dL (0.2-1.2); Calc. Creatinine Clearance 74 mL/min (70-130); Calcium 8.9 mg/dL (7.8-10.44); Carbon Dioxide 24 mmol/L (23-31); Chloride 105 mmol/L (98-107); Estimated GFR 87; Globulin 2.5 g/dL (2.4-3.5); Glucose 105 mg/dL (83-110); Potassium 3.4 mmol/L (3.5-5.1); Protein, Total 6.1 g/dL (5.8-8.1); Sodium 139 mmol/L (136-145)
[2022-08-08] MEDS: Atorvastatin Calcium 40 MG TAB PO SCH (21:18)
[2022-08-09 06:20] LABS: Anion Gap 12 mmol/L (10-20); BUN (Urea Nitrogen) 15 mg/dL (8.4-25.7); Calc. Creatinine Clearance 78 mL/min (70-130); Calcium 8.7 mg/dL (7.8-10.44); Carbon Dioxide 24 mmol/L (23-31); Chloride 108 mmol/L (98-107); Estimated GFR 88; Glucose 104 mg/dL (83-110); Potassium 3.5 mmol/L (3.5-5.1); Sodium 140 mmol/L (136-145)
[2022-08-09 06:30] LABS: #Eosinphils 0.5 thou/uL (0.0-0.7); #Lymphocytes 1.6 thou/uL (1.20-3.40); #Monocytes 0.4 thou/uL (0.11-0.59); %Basophils 0.6 % (0.0-1.0); %Eosinophils 9.2 % (0.0-10.0); %Lymphocytes 29.5 % (21.0-51.0); %Monocytes 6.7 % (0.0-10.0); Hemoglobin 9.4 g/dL (14.0-18.0); Mean Corpuscular HGB CONC 34.3 g/dL (32.0-36.0); Mean Corpuscular Hemoglobin 34.7 pg (27.0-31.0); Mean Platelet Volume 7.2 fL (7.4-10.4); Platelet Count 118 thou/uL (130-400); RBC Distribution Width 13.9 % (11.5-14.5); White Blood Cell (WBC) Count 5.6 thou/uL (4.8-10.8)
[2022-08-09] MEDS: Levothyroxine Sodium 50 MCG TAB PO SCH (06:49)
[2022-08-09] MEDS: Tamsulosin HCl 0.4 MG CAP PO SCH (09:22)
[2022-08-09] MEDS: Spironolactone 25 MG TAB PO SCH (09:22)
[2022-08-09] MEDS: Thiamine 100 MG TAB PO SCH (09:22)
[2022-08-09] MEDS: Losartan 25 MG TAB PO SCH (09:23)
[2022-08-09] MEDS: Carvedilol 3.125 MG TAB PO SCH ×2 (09:24→17:37)
[2022-08-09] MEDS: Amlodipine 10 MG TAB PO SCH (09:24)
[2022-08-09] MEDS: Allopurinol 100 MG TAB PO SCH (09:24)
[2022-08-09] MEDS: Ferrous Sulfate 325 MG TAB PO SCH (09:24)
[2022-08-09] MEDS: Atorvastatin Calcium 40 MG TAB PO SCH (21:08)
[2022-08-10] MEDS: Levothyroxine Sodium 50 MCG TAB PO SCH (05:58)
[2022-08-10] MEDS: Ferrous Sulfate 325 MG TAB PO SCH (09:21)
[2022-08-10] MEDS: Spironolactone 25 MG TAB PO SCH (09:22)
[2022-08-10] MEDS: Allopurinol 100 MG TAB PO SCH (09:22)
[2022-08-10] MEDS: Carvedilol 3.125 MG TAB PO SCH (09:22)
[2022-08-10] MEDS: Thiamine 100 MG TAB PO SCH (09:22)
[2022-08-10] MEDS: Losartan 25 MG TAB PO SCH (09:22)
[2022-08-10] MEDS: Tamsulosin HCl 0.4 MG CAP PO SCH (09:22)
[2022-08-10] MEDS: Amlodipine 10 MG TAB PO SCH (09:22)
[2022-08-10 16:20] VITALS: BP 146/62; TEMP 98
== END 2022-08-10 16:59 | DRG 66 ==
LOC: SUATTDRO 14:56 → ERS 14:56 → NEURO 17:19 → OBSVTOIN 07-31 14:44
PROVIDERS: ADMIT Internal Medicine; ATTEND Internal Medicine
DX: I63.9 Cerebral infarction, unspecified (principal); E03.9 Hypothyroidism, unspecified; I10 Essential (primary) hypertension; R33.9 Retention of urine, unspecified; N40.1 Benign prostatic hyperplasia with lower urinary tract symptoms; I25.10 Atherosclerotic heart disease of native coronary artery without angina pectoris; M10.9 Gout, unspecified; I48.0 Paroxysmal atrial fibrillation; R47.01 Aphasia; E61.1 Iron deficiency; E78.5 Hyperlipidemia, unspecified; E78.00 Pure hypercholesterolemia, unspecified; D69.6 Thrombocytopenia, unspecified; R31.9 Hematuria, unspecified; R31.0 Gross hematuria; Z20.822 Contact with and (suspected) exposure to COVID-19; Z79.899 Other long term (current) drug therapy; Z95.1 Presence of aortocoronary bypass graft; Z79.01 Long term (current) use of anticoagulants; Z79.82 Long term (current) use of aspirin
CPT/HCPCS: 36415; 36416; 51702; 70450; 70496; 70498; 70551; 71045; 80048; 80053; 80061; 81003; 81015; 83036; 83735; 85014; 85018; 85025; 85027; 85610; 85730; 87086; 87811; 93005; 93306; 94760; 95712; 95819; 95957; 96374; G0378; J0696; J3490; J7050; U0003; U0005

== ENCOUNTER 2023-08-12 12:25 | Inpatient (IN) | payer MEDICARE ==
[2023-08-12 13:40] LABS: ALT (SGPT) 7 U/L (8-55); AST (SGOT) 48 U/L (5-34); Albumin 3.7 g/dL (3.4-4.8); Alkaline Phosphatase 170 U/L (40-110); Anion Gap 13 mmol/L (10-20); BUN (Urea Nitrogen) 11 mg/dL (8.4-25.7); Bilirubin, Total 0.7 mg/dL (0.2-1.2); Calc. Creatinine Clearance 0 mL/min (70-130); Calcium 8.8 mg/dL (7.8-10.44); Carbon Dioxide 24 mmol/L (23-31); Chloride 104 mmol/L (98-107); Estimated GFR 88; Globulin 2.1 g/dL (2.4-3.5); Glucose 120 mg/dL (83-110); Magnesium 1.9 mg/dL (1.6-2.6); Potassium 4.1 mmol/L (3.5-5.1); Protein, Total 5.8 g/dL (5.8-8.1); Sodium 137 mmol/L (136-145); Troponin I Less than 0.010 ng/mL (< 0.028)
[2023-08-12] MEDS ORDERED: Boostrix 0.5 ML (Tdap) VIAL (>/=7 yrs of age) ONE (14:08)
[2023-08-12 14:53] LABS: Bacteria/HPF 1+ HPF (None Seen); Bilirubin Negative (Negative); Blood, Urine Negative (Negative); CAUTI Indications for Culture Alt mental st,lethar; Clarity Turbid (Clear); Glucose, Urine (Dipstick) Normal (Negative); Ketone, Urine Negative (Negative); Leukocyte 500 Leu/uL (Negative); Nitrite 2+ (Negative); Protein, Urine (Dipstick) 10 mg/dL (Neg-Trace); RBC/HPF 0-3 HPF (0-3); Specific Gravity, Urine 1.019 (1.002-1.036); Squamous Epithelial None Seen HPF (0-3); Urobilinogen Normal mg/dL (Less than 2); WBC/HPF Greater than 50 HPF (0-3); pH, Urine 5.5 (5.0-9.0)
[2023-08-12 14:54] LABS: Urine Culture Reflex Yes Yes
[2023-08-12 15:20] LABS: Actual Bicarbonate (HCO3v) 23.7 mEq/L (22-28); Base Excess -0.1 mEq/L (-2.0 to +3.0); Calcium, Ionized (venous) 1.07 mmol/L (1.16-1.32); Chloride (VBG) 104 mmol/L (98-106); Hematocrit-VBG 30 % (42.0-52.0); Hemoglobin (Hb) 10.3 g/dL (12.6-17.4); Potassium (VBG) 3.84 mmol/L (3.70-5.30); Sodium 136.6 mmol/L (133-146); pH (venous) 7.444 (7.32-7.43)
[2023-08-12 15:25] LABS: #Eosinphils 0.1 thou/uL (0.0-0.7); #Monocytes 0.4 thou/uL (0.11-0.59); %Basophils 0.3 % (0.0-1.0); %Eosinophils 1.3 % (0.0-10.0); %Lymphocytes 12.2 % (21.0-51.0); %Monocytes 5.1 % (0.0-10.0); %Neutrophils 80.3 % (42.0-75.0); Hematocrit 26.6 % (42.0-52.0); Hemoglobin 8.9 g/dL (14.0-18.0); Mean Corpuscular HGB CONC 33.5 g/dL (32.0-36.0); Mean Corpuscular Hemoglobin 31.6 pg (27.0-31.0); Mean Corpuscular Volume 94.3 fl (78.0-98.0); Mean Platelet Volume 9.5 fL (7.4-10.4); RBC Distribution Width 15.2 % (11.5-14.5); Red Blood Cell (RBC) Count 2.82 mill/uL (4.70-6.10); White Blood Cell (WBC) Count 7.5 10x3/uL (4.8-10.8)
[2023-08-12 15:26] LABS: Platelet Count 98 10x3/uL (130-400)
[2023-08-12] MEDS ORDERED: cefTRIAXone (ROCEPHIN) 2 GM VIAL ONE (16:19)
[2023-08-12] MEDS ORDERED: Non-Formulary Item 1 EACH (Lidocaine 5% Patch [Lidoderm 5% Patch] 1 PATCH Patch) TOP SCH (19:00)
[2023-08-12] MEDS ORDERED: Milk Of Magnesia 30 ML UDCUP PO PRN (19:00)
[2023-08-12] MEDS ORDERED: Oxycodone Myristate [Xtampza Er] 9 MG Cap.Spr.12 PO PRN (19:00)
[2023-08-12] MEDS ORDERED: oxyCODONE 5 MG TAB PO PRN (19:00)
[2023-08-12] MEDS ORDERED: Acetaminophen 325 MG TAB PO PRN (19:15)
[2023-08-12] MEDS: Allopurinol 300 MG TAB PO SCH (20:20)
[2023-08-12] MEDS: Ezetimibe 10 MG TAB PO SCH (20:20)
[2023-08-12] MEDS: Melatonin 3 MG TAB PO PRN (20:20)
[2023-08-12] MEDS: Gabapentin 300 MG CAP PO SCH (20:20)
[2023-08-12] MEDS: Atorvastatin Calcium 40 MG TAB PO SCH (20:21)
[2023-08-12] MEDS: Polyethylene Glycol 3350 17 GM Packet PO SCH (20:21)
[2023-08-12] MEDS: Senokot S 8.6-50 MG TAB PO SCH (20:21)
[2023-08-12] MEDS: Cefepime 1 GM in Sodium Chloride 0.9% 100 ML IVPB SCH (20:21)
[2023-08-12] MEDS ORDERED: Apixaban 5 MG TAB PO SCH (21:00)
[2023-08-13] MEDS: Levothyroxine Sodium 50 MCG TAB PO SCH (05:03)
[2023-08-13 06:00] LABS: #Eosinphils 0.2 thou/uL (0.0-0.7); #Monocytes 0.5 thou/uL (0.11-0.59); %Basophils 0.1 % (0.0-1.0); %Eosinophils 2.7 % (0.0-10.0); %Lymphocytes 10.9 % (21.0-51.0); %Neutrophils 79.6 % (42.0-75.0); Hematocrit 24.5 % (42.0-52.0); Mean Corpuscular HGB CONC 32.7 g/dL (32.0-36.0); Mean Corpuscular Hemoglobin 31.1 pg (27.0-31.0); Mean Corpuscular Volume 95.3 fl (78.0-98.0); Mean Platelet Volume 9.5 fL (7.4-10.4); Platelet Count 92 10x3/uL (130-400); RBC Distribution Width 15.2 % (11.5-14.5); Red Blood Cell (RBC) Count 2.57 mill/uL (4.70-6.10); White Blood Cell (WBC) Count 7.5 10x3/uL (4.8-10.8)
[2023-08-13 06:25] LABS: ALT (SGPT) Less than 7 U/L (8-55); AST (SGOT) 35 U/L (5-34); Albumin 3.2 g/dL (3.4-4.8); Alkaline Phosphatase 140 U/L (40-110); Anion Gap 15 mmol/L (10-20); BUN (Urea Nitrogen) 12 mg/dL (8.4-25.7); Bilirubin, Total 0.7 mg/dL (0.2-1.2); Calc. Creatinine Clearance 61 mL/min (70-130); Calcium 8.7 mg/dL (7.8-10.44); Carbon Dioxide 21 mmol/L (23-31); Chloride 106 mmol/L (98-107); Estimated GFR 84; Globulin 2.3 g/dL (2.4-3.5); Glucose 116 mg/dL (83-110); Protein, Total 5.5 g/dL (5.8-8.1); Sodium 138 mmol/L (136-145)
[2023-08-13] MEDS: Allopurinol 300 MG TAB PO SCH ×2 (08:14→20:12)
[2023-08-13] MEDS: Ascorbic Acid 500 mg Chewable Tablet PO SCH (08:14)
[2023-08-13] MEDS: Cholecalciferol 1,000 UNITS (25 MCG) TAB PO SCH (08:14)
[2023-08-13] MEDS: Cefepime 1 GM in Sodium Chloride 0.9% 100 ML IVPB SCH ×2 (08:15→20:12)
[2023-08-13] MEDS: Polyethylene Glycol 3350 17 GM Packet PO SCH ×2 (08:15→20:12)
[2023-08-13] MEDS: Gabapentin 300 MG CAP PO SCH ×3 (08:15→20:12)
[2023-08-13] MEDS: Loratadine 10 MG TAB PO SCH (08:15)
[2023-08-13] MEDS: Carvedilol 3.125 MG TAB PO SCH ×2 (08:15→15:55)
[2023-08-13] MEDS: Senokot S 8.6-50 MG TAB PO SCH ×2 (08:15→20:11)
[2023-08-13] MEDS: Multivitamin W/ Minerals 1 TAB PO SCH (08:15)
[2023-08-13] MEDS: Folic Acid 1 MG TAB PO SCH (08:15)
[2023-08-13] MEDS: Metamucil PACK PO SCH (08:15)
[2023-08-13] MEDS ORDERED: Enzalutamide [Xtandi] 80 MG Tablet PO SCH (09:00)
[2023-08-13] MEDS ORDERED: Amlodipine 10 MG TAB PO SCH (09:00)
[2023-08-13] MEDS ORDERED: Tamsulosin HCl 0.4 MG CAP PO SCH (09:00)
[2023-08-13 10:58] VITALS: BMI 23.3
[2023-08-13] MEDS: Ezetimibe 10 MG TAB PO SCH (20:11)
[2023-08-13] MEDS: Atorvastatin Calcium 40 MG TAB PO SCH (20:12)
[2023-08-13] MEDS: Melatonin 3 MG TAB PO PRN (20:12)
[2023-08-14] MEDS: Levothyroxine Sodium 50 MCG TAB PO SCH (05:39)
[2023-08-14 06:38] LABS: #Eosinphils 0.2 thou/uL (0.0-0.7); #Monocytes 0.3 thou/uL (0.11-0.59); #Neutrophils 4.4 thou/uL (1.40-6.50); %Basophils 0.2 % (0.0-1.0); %Eosinophils 3.5 % (0.0-10.0); %Lymphocytes 13.3 % (21.0-51.0); %Monocytes 4.9 % (0.0-10.0); %Neutrophils 76.9 % (42.0-75.0); Hematocrit 24.9 % (42.0-52.0); Hemoglobin 8.2 g/dL (14.0-18.0); Mean Corpuscular HGB CONC 32.9 g/dL (32.0-36.0); Mean Corpuscular Hemoglobin 30.8 pg (27.0-31.0); Mean Corpuscular Volume 93.6 fl (78.0-98.0); Mean Platelet Volume 10.8 fL (7.4-10.4); Red Blood Cell (RBC) Count 2.66 mill/uL (4.70-6.10); White Blood Cell (WBC) Count 5.7 10x3/uL (4.8-10.8)
[2023-08-14 07:01] LABS: ALT (SGPT) 8 U/L (8-55); AST (SGOT) 41 U/L (5-34); Albumin 3.2 g/dL (3.4-4.8); Alkaline Phosphatase 134 U/L (40-110); Anion Gap 15 mmol/L (10-20); BUN (Urea Nitrogen) 12 mg/dL (8.4-25.7); Bilirubin, Total 0.5 mg/dL (0.2-1.2); Calc. Creatinine Clearance 71 mL/min (70-130); Calcium 8.9 mg/dL (7.8-10.44); Carbon Dioxide 22 mmol/L (23-31); Chloride 104 mmol/L (98-107); Estimated GFR 90; Globulin 2.4 g/dL (2.4-3.5); Glucose 108 mg/dL (83-110); Potassium 3.5 mmol/L (3.5-5.1); Protein, Total 5.6 g/dL (5.8-8.1); Sodium 137 mmol/L (136-145)
[2023-08-14 07:03] LABS: Platelet Count 94 10x3/uL (130-400)
[2023-08-14] MEDS: Carvedilol 3.125 MG TAB PO SCH (08:39)
[2023-08-14] MEDS: Gabapentin 300 MG CAP PO SCH (08:40)
[2023-08-14] MEDS: Ascorbic Acid 500 mg Chewable Tablet PO SCH (08:40)
[2023-08-14] MEDS: Loratadine 10 MG TAB PO SCH (08:40)
[2023-08-14] MEDS: Multivitamin W/ Minerals 1 TAB PO SCH (08:40)
[2023-08-14] MEDS: Folic Acid 1 MG TAB PO SCH (08:40)
[2023-08-14] MEDS: Cholecalciferol 1,000 UNITS (25 MCG) TAB PO SCH (08:40)
[2023-08-14] MEDS: Allopurinol 300 MG TAB PO SCH (08:40)
[2023-08-14] MEDS: Senokot S 8.6-50 MG TAB PO SCH (08:41)
[2023-08-14] MEDS: Metamucil PACK PO SCH (08:41)
[2023-08-14] MEDS: Polyethylene Glycol 3350 17 GM Packet PO SCH (08:41)
[2023-08-14 14:08] VITALS: BP 126/72; TEMP 99.2
[2023-08-14] MEDS ORDERED: Ciprofloxacin 500 MG TAB PO SCH (20:00)
== END 2023-08-14 14:27 | DRG 689 ==
LOC: ERS 12:25 → T4-A 16:25 → OBSVTOIN 08-13 12:30
PROVIDERS: ADMIT Student in an Organized Health Care Education/Training Program; ATTEND Student in an Organized Health Care Education/Training Program
DX: N39.0 Urinary tract infection, site not specified (principal); G93.41 Metabolic encephalopathy; S06.0XAA Concussion with loss of consciousness status unknown, initial encounter; C79.51 Secondary malignant neoplasm of bone; E46 Unspecified protein-calorie malnutrition; D69.6 Thrombocytopenia, unspecified; I10 Essential (primary) hypertension; I48.0 Paroxysmal atrial fibrillation; E03.9 Hypothyroidism, unspecified; C61 Malignant neoplasm of prostate; E78.5 Hyperlipidemia, unspecified; M10.9 Gout, unspecified; I25.10 Atherosclerotic heart disease of native coronary artery without angina pectoris; R53.81 Other malaise; K59.00 Constipation, unspecified; D64.9 Anemia, unspecified; E78.00 Pure hypercholesterolemia, unspecified; S00.03XA Contusion of scalp, initial encounter; L89.899 Pressure ulcer of other site, unspecified stage; W19.XXXA Unspecified fall, initial encounter; Z68.23 Body mass index [BMI] 23.0-23.9, adult; Z79.899 Other long term (current) drug therapy; Z91.018 Allergy to other foods; Z98.890 Other specified postprocedural states; Z95.2 Presence of prosthetic heart valve; Z79.890 Hormone replacement therapy; Z91.81 History of falling
CPT/HCPCS: 36415; 70450; 70486; 71045; 72125; 76377; 80053; 81001; 82805; 83605; 83735; 84484; 85025; 87040; 87077; 87086; 87186; 90715; 93005; 97139; J0692; J0696; J3490